=== PATIENT | male | born 1985 | race Native Hawaiian/Other Pacific Islander ===

== ENCOUNTER 2020-12-19 15:52 | Emergency (ER) | payer SELFPAY ==
[~2020-12-19] VITALS: Ht 182.8 cm; Wt 117.9 kg
--- NOTE | 2020-12-19 16:24 | ED Cough/URI ---
General Chief Complaint: COVID19 Suspect/Confirmed Stated Complaint: COVID+; WEAKNESS; HEADACHE; NAUSEA Nursing Triage Note: Patient presents to the ED with c/o shortness of breath, cough, and fatigue. Patient reports he tested positive for COVID but his symptoms have been ongoing for 4-5 weeks. He states that he is getting better but is still really weak and wanted to be evaluated. Source: patient Exam Limitations: no limitations History of Present Illness Date Seen by Provider: Dec 19, 2020 Time Seen by Provider: 16:00 Initial Comments 35-year-old male with past medical history of diabetes coming in due to cough and general malaise in the setting of being Covid positive for 1 week and being symptomatic for 3 weeks. Has not taken any medications. Is tolerating p.o. without any vomiting. Denies any shortness of breath, chest pain, or any other concerns. Has not vaccinated for Covid. Allergies and Home Medications Allergies Coded Allergies: No Known Drug Allergies (Unverified , 12/19/20) Patient Home Medication List Home Medication List Reviewed: Yes Review of Systems Review of Systems Constitutional: chills; No fever; malaise EENTM: no symptoms reported Respiratory: cough; No short of breath Cardiovascular: No chest pain Gastrointestinal: No abdominal pain, No diarrhea, No nausea, No vomiting Genitourinary: no symptoms reported Musculoskeletal: no symptoms reported Skin: no symptoms reported Psychiatric/Neurological: No Symptoms Reported Hematologic/Lymphatic: No Symptoms Reported Immunological/Allergic: no symptoms reported All Other Systems Reviewed Negative Unless Noted: Yes Past Lqtergm-Lcjaon-Hjhdgw Hx Patient Social History Tobacco Use?: Yes Tobacco type used: Cigarettes Smoking Status: Current Everyday Smoker Use of E-Cig and/or Vaping dev: No Substance use?: No Alcohol Use?: Yes Alcohol type: Beer Alcohol Frequency: Once in a while Pt feels they are or have been: No Past Medical History Surgery/Hospitalization HX: Positive for COVID January 11, 2021. Physical Exam Vital Signs - First Documented 12/19/20 16:00 Temp 35.6 Pulse 67 Resp 18 B/P (MAP) 132/82 (99) Pulse Ox 96 O2 Delivery Room Air Capillary Refill : Less Than 3 Seconds Height: '" Weight: lbs. oz. kg; 35.00 BMI Method: General Appearance: WD/WN, no apparent distress HEENT: PERRL/EOMI, normal ENT inspection, pharynx normal Neck: non-tender, full range of motion, supple, normal inspection Respiratory: chest non-tender, lungs clear, normal breath sounds, no respiratory distress, no accessory muscle use Cardiovascular: regular rate, rhythm, no edema, no murmur Gastrointestinal: normal bowel sounds, non tender, soft; No guarding, No reboun d Extremities: normal range of motion, non-tender, normal inspection, no pedal edema, no calf tenderness, normal capillary refill Neurologic/Psychiatric: no motor/sensory deficits, alert, normal mood/affect Skin: normal color, warm/dry Lymphatic: no adenopathy Progress/Results/Core Measures Suspected Sepsis SIRS Temperature: Pulse: 67 Respiratory Rate: 18 Blood Pressure 132 /82 Mean: 99 Results/Orders Vital Signs/I&O 12/19/20 16:00 Temp 35.6 Pulse 67 Resp 18 B/P (MAP) 132/82 (99) Pulse Ox 96 O2 Delivery Room Air Capillary Refill : Less Than 3 Seconds Blood Pressure Mean: 99 Progress Note : Progress Note 35-year-old male with above history coming in due to cough and malaise in the setting of being Covid positive for a week and symptomatic for 3 weeks. ABCs were intact and vitals were stable on presentation. His lung sounds are clear, with exertion he has no shortness of breath, vitals with oxygen greater than 98% on room air and he is not tachycardic. Overall he is well-appearing. I recommend symptomatic treatment like ibuprofen or Tylenol for chills or body aches. I recommend he buy a pulse oximeter and check it regularly and come back to the ER if he has any concerns. He was then discharged home in stable condition with strict return precautions. Departure Impression Primary Impression: COVID-19 Disposition: 01 HOME, SELF-CARE Condition: Stable Departure-Patient Inst. Decision time for Depature: 16:22 Referrals: NO,LOCAL PHYSICIAN (PCP/Family) Primary Care Physician Patient Instructions: COVID-19 (DC) Add. Discharge Instructions: Your oxygen was in your heart rate was good in the emergency department. Your lungs sound clear. It does not appear like you have Covid pneumonia at this time. Given that this is a virus, we do not recommend any antibiotics. Take ibuprofen or Tylenol as needed if you are having body aches or generally feel bad. I do recommend that you stop smoking. I do also recommend you buy a pulse oximeter either at the pharmacy or online on [employer]. If your oxygen is in the 80s consistently will not go back up to the 90s with rest, then I recommend you call 911 or come to the ER. All discharge instructions reviewed with patient and/or family. Voiced understanding. ARMIN LUCAS MD Dec 19, 2020 16:24
[2020-12-19 16:34] VITALS: BP 132/82
== END 2020-12-19 16:26 | disposition home or self-care (01) ==
LOC: ER FS 15:56
DX: U07.1 COVID-19 (principal); F17.210 Nicotine dependence, cigarettes, uncomplicated
CPT/HCPCS: 99282